=== PATIENT | male | born 1990 | race Caucasian/White ===

== ENCOUNTER 2023-05-23 13:49 | Emergency (ER) | payer OTHER, SELFPAY ==
[2023-05-23 13:52] VITALS: BP 132/81
[2023-05-23 13:58] VITALS: BMI 27.8
--- NOTE | 2023-05-23 13:58 | ED.GENMED ---
History of Present Illness
General
Chief Complaint: Overdose Unintentional
Source: patient
Exam Limitations: none
Time Seen by Provider: 05/23/23 13:54
Travel History
Have you had any contact with someone who has COVID-19?: No
Do you have any symptoms of coronavirus? Fever > 100 degrees, chills, cough, shortness of breath, sore throat, loss of taste or smell, muscle aches, or headache?: No
History of Present Illness
History of Present Illness:
32-year-old male presents from [facility] after being found by staff to be acting differently. He was with another inmate. Patient admits to smoking something which he thought was a cigarette but could have been K2. The
other inmate required multiple doses of Narcan however this patient did not. He has no complaints of chest pain shortness of breath or nausea. He is on Subutex. No known allergies. No complaints offered.
Past History
Past History
ED Past Medical History: Psychiatric (IVSA-Meth)
Social History
Drug: IVDA
Phy Exam
Physical Exam
Physical Exam:
General: Well-appearing male no acute respiratory distress
HEENT: Normocephalic atraumatic pupils equal round measuring 2 mm bilaterally heart: Regular rate and rhythm no murmurs
Lungs: Clear to auscultation bilaterally no wheezing
Neurologic: Alert conversing appropriately oriented to person place and time
Extremities: No cyanosis
Course
Orders/Labs/Results
Orders:
Orders
05/23/23 13:55
Drug Screen, Urine [Urine Drug Abuse Screen] Urgent
Date Specimen was Collected: 05/23/23
Time Specimen was Collected: 14:58
Vital Signs
Initial and Last Documented VS:
Initial Vital Signs
Temp Pulse Resp BP Pulse Ox
97.3 F 63 20 132/81 100
05/23/23 13:52 05/23/23 13:52 05/23/23 13:52 05/23/23 13:52 05/23/23 13:52
Last Documented Vital Signs
Temp Pulse Resp BP Pulse Ox
97.3 F 63 20 132/81 100
05/23/23 13:52 05/23/23 13:52 05/23/23 13:52 05/23/23 13:52 05/23/23 13:52
MDM/Problems Addressed
Differential Diagnosis Includes:
Unknown ingestion or inhaled use of substance. Patient now alert. He is stable. He admits to smoking what he thought was a cigarette. Drug screen pending.
*Critical Care Note
Total Time (30-74mins, 75-104mins- exclusive of procedures): Not Applicable
Update Note
Update Note:
Patient has remained alert. Vital signs are stable. Unable to provide urine sample but not necessary at this point. Stable for discharge back to long term.
ED Attending Note
-
Portions of this chart may have been created with voice recognition software.� Occasional wrong word or��sound alike� substitutions may have occurred due to the inherent limitations of voice recognition software.
Discharge Plan
Departure
Patient Disposition: Home (Routine Discharge)
Date of Disposition: 05/23/23
Time of Disposition: 15:03
Patient with high blood pressure during this ER visit?: No
Discharge Problem:
Accidental overdose
Instructions: Accidental Overdose (DC)
Prescriptions:
No Action
bupropion HCl 100 MG tablet
100 mg PO BID
buprenorphine-naloxone [Suboxone] 1 FILM film
1 film sublingual DAILY
Patient Comments:
Pt unsure of dosage
Referrals:
[facility] [Family Provider] -
Activity Restrictions/Additional Instructions:
Return if needed
Interventions
Interventions:
*Risk Screen - Suicide Last Done: 05/23/23 13:52
*General Assessment Last Done: 05/23/23 13:52
*Neglect/Abuse Screening Last Done: 05/23/23 13:52
*ED COVID-19 Vaccine History Last Done: 05/23/23 13:58
[2023-05-23 15:00] VITALS: BP 129/75
== END 2023-05-23 15:30 | disposition home or self-care (01) ==
LOC: EMR 13:49
PROVIDERS: EMERGENCY PHYSICIAN Emergency Medicine
DX: T50.901A Poisoning by unspecified drugs, medicaments and biological substances, accidental (unintentional), initial encounter (principal); F17.200 Nicotine dependence, unspecified, uncomplicated
CPT/HCPCS: 99282